=== PATIENT | male | born 1970 | race Hispanic/Latino ===

== ENCOUNTER 2023-04-25 12:48 | Emergency (ER) | payer OTHER ==
[2023-04-25 15:27] VITALS: BP 165/84; PULSE 72; RESP 18; O2SAT 98
== END 2023-04-25 16:27 | disposition home or self-care (01) ==
LOC: EDH 12:48
DX: S09.8XXA Other specified injuries of head, initial encounter (principal); I10 Essential (primary) hypertension; X58.XXXA Exposure to other specified factors, initial encounter; Y93.89 Activity, other specified; Y92.89 Other specified places as the place of occurrence of the external cause; Y99.8 Other external cause status
CPT/HCPCS: 70450

== ENCOUNTER 2024-02-19 16:22 | Emergency (ER) | payer OTHER ==
[~2024-02-19] VITALS: Ht 167.6 cm; Wt 70.3 kg
[2024-02-19] MEDS: KETOROLAC 30MG VIAL (30MG/ML) IM ONE (17:55)
[2024-02-19 18:13] VITALS: BP 145/88; PULSE 80; RESP 16; O2SAT 99
== END 2024-02-19 18:18 | disposition home or self-care (01) ==
LOC: EDH 16:22
DX: S00.93XA Contusion of unspecified part of head, initial encounter (principal); Z79.01 Long term (current) use of anticoagulants; Z95.2 Presence of prosthetic heart valve; X58.XXXA Exposure to other specified factors, initial encounter; Y93.89 Activity, other specified; Y92.89 Other specified places as the place of occurrence of the external cause; Y99.9 Unspecified external cause status
CPT/HCPCS: 99285; 70450; 96372; J1885

== ENCOUNTER 2024-12-28 11:09 | Emergency (ER) | payer OTHER ==
[~2024-12-28] VITALS: Ht 170.2 cm; Wt 76.3 kg
[2024-12-28] MEDS: HYDROcodone/APAP 5/325 1 TAB TABLET PO STA (12:12)
--- NOTE | 2024-12-28 13:30 | HMCIMG ---
US VENOUS DOPPLER UNILATERAL HISTORY: Swelling COMPARISON: None TECHNIQUE: Left lower extremity venous Doppler ultrasound study was performed. Additional images of the left calf were obtained at the region of interest. FINDINGS: The left common femoral, femoral, popliteal, and posterior tibial veins are visualized. Normal flow with augmentation and compressibilities are demonstrated. Left greater saphenous vein is patent. At the region of interest in the left calf area, there is complex fluid collection measuring 6.1 x 1.3 x 3.3 cm may be related to a tear. IMPRESSION: 1. No evidence of deep venous thrombosis is seen. Possible tear in the left calf area with complex fluid collection measuring 6.1 x 1.3 x 3.3 cm.
--- NOTE | 2024-12-28 14:36 | HMCIMG ---
CT LOW EXT W/O CONTRAST REASON: possible left calf tear. COMPARISON: None TECHNIQUE: CT of the left tibia and fibula was obtained. Two-dimensional reconstruction images were obtained. Intravenous contrast was not given. FINDINGS: No acute displaced fracture is seen of the left tibia and fibula. There appears to be intramuscular hematoma near the fascial plane of the gastrocnemius and soleus muscle in the left upper calf region. Adjacent subcutaneous fat stranding is seen. IMPRESSION: Findings as described above.
--- NOTE | 2024-12-28 14:45 | ERN ---
ED Note History of Present Illness Stated Complaint: LEFT LOWER LEG PAIN Chief Complaint: Lower Extremity Pain/Injury Time Seen by MD: 11:17 Time Seen by Midlevel: 11:20 Dictation: 54-year-old male with no past medical history coming in complaining of left calf pain onset eight days ago. Patient states he was coming off a ladder stepped wrong and since then has had calf pain and swelling. Went to the PCP today and was sent here to rule out a DVT. Allergies: Coded Allergies: No Known Drug Allergies (Unverified Allergy, Unknown, 02/19/24) Past Medical History Past Medical History: Heart Disease, Other Surgical History: Other Surgical History Other: HEART VALVE REPLACEMENT Social History: Negative, Lives with family Review of System Dictation Constitutional: Negative for fever,chills, and weight loss Eyes: Negative for injury, pain,redness, and discharge ENT: Negative for injury,pain or swelling Cardiovascular: Negative for chest pain, palpitations, and edema Respiratory: Negative for shortness of breath, cough, and wheezing, Abdomen/GI: Negative for abdominal pain, nausea, vomiting, diarrhea, and constipation Back: Negative for injury and pain : Negative for injury, bleeding and discharge MS/Extremity: Negative for injury and deformity, left calf pain Skin: Negative for rash, and discoloration Neuro: Negative for headache, weakness, numbness, tingling, and seizure Psych: Negative for suicide ideation, homicidal ideation, and hallucinations Review of Systems: was completed Initial Vital Sign VS Vital Signs Date Time Temp Pulse Resp B/P (MAP) Pulse Ox O2 Delivery O2 Flow Rate FiO2 12/28/24 11:29 98.1 85 16 152/96 98 Room Air 0 Physical Exam Dictation General: awake, alert, NAD Head/Face: Normocephalic, atraumatic Eyes: PERRL, EOMI, vision at baseline ENT: oral cavity clear, TMs clear, no signs of infection Neck: Trachea midline, supple, no nuchal rigidity Cardiovascular: RRR, normal S1/S2, No MRGs, no JVD Respiratory: CTAB, no respiratory distress, No rales or wheezes Abdomen: Soft, non-tender, non-distended, normal bowel sounds, no guarding or rebound. Skin: Warm, dry, normal turgor, no rash MS/Extremity: Pulses equal, no cyanosis, neurovascular intact, FROM, left calf swelling and tenderness on palpation, distal pulses intact, Neuro: COAx4, GCS 15, strength 5/5, CN 2-12 intact, normal cerebellar exam, normal gait, Psych: Normal behavior, mood, and affect normal Results (Laboratory/Radiology) Ultrasound Comment: [facility] [address] [place] [address] [id number] IMAGING REPORT Signed PATIENT: ADAMS VÁZQUEZ MR#: [id number] : 05/1970 SEX: M AGE: 54 LOCATION: [facility] ORDER [id number] STATUS: REG ER REPORT#: [id number] SERVICE 1136 REASON: left calf pain, swelling ORDERING PHYSICIAN: RANDAL CHANDRA NP PROCEDURE: VENOUS UNI - US VENOUS DOPPLER UNILATERAL US VENOUS DOPPLER UNILATERAL HISTORY: Swelling COMPARISON: None TECHNIQUE: Left lower extremity venous Doppler ultrasound study was performed. Additional images of the left calf were obtained at the region of interest. FINDINGS: The left common femoral, femoral, popliteal, and posterior tibial veins are visualized. Normal flow with augmentation and compressibilities are demonstrated. Left greater saphenous vein is patent. At the region of interest in the left calf area, there is complex fluid collection measuring 6.1 x 1.3 x 3.3 cm may be related to a tear. IMPRESSION: 1. No evidence of deep venous thrombosis is seen. Possible tear in the left calf area with complex fluid collection measuring 6.1 x 1.3 x 3.3 cm. DICTATED BY: CELESTE MCKINNON MD DATE: 12/28/24 1325 ELECTRONICALLY SIGNED BY: CELESTE MCKINNON MD DATE: 12/28/[address] Scan Comment: [facility] [address] [place] [id number] IMAGING REPORT Signed PATIENT: ADAMS VÁZQUEZ MR#: [id number] : 1970 SEX: M AGE: 54 LOCATION: [facility] ORDER [id number] STATUS: REG ER REPORT#: [id number] SERVICE [id number] REASON: possible left calf tear ORDERING PHYSICIAN: RANDAL CHANDRA NP PROCEDURE: LOW EXT WO - CT LOW EXT W/O CONTRAST CT LOW EXT W/O CONTRAST REASON: possible left calf tear. COMPARISON: None TECHNIQUE: CT of the left tibia and fibula was obtained. Two-dimensional reconstruction images were obtained. Intravenous contrast was not given. FINDINGS: No acute displaced fracture is seen of the left tibia and fibula. There appears to be intramuscular hematoma near the fascial plane of the gastrocnemius and soleus muscle in the left upper calf region. Adjacent subcutaneous fat stranding is seen. IMPRESSION: Findings as described above. DICTATED BY: CELESTE MCKINNON MD DATE: 12/28/241430 ELECTRONICALLY SIGNED BY: CELESTE MCKINNON MD DATE: 12/28/24 143 ED Course ED Course Orders Procedure Category Date Status Time Hydrocodone/Apap PHA 12/28/24 Complete 5/325 ([place] 5/325mg) 11:35 Us Venous Doppler US 12/28/24 Resulted Unilateral 11:35 Ct Low Ext W/O CT 12/28/24 Resulted Contrast 13:40 *Nursing CPOE 12/28/24 Transmitted Communication: 13:43 Current Medications Medications (Trade) Dose Ordered Sig/Karine Route PRN Reason Start Time Stop Time Status Last Admin Dose Admin Acetaminophen/ Hydrocodone Bitart ([place] 5/325MG) 1 tab ONCE STAT PO 12/28/24 11:35 12/28/24 11:38 DC 12/28/24 12:12 Vital Signs Date Time Temp Pulse Resp B/P (MAP) Pulse Ox O2 Delivery O2 Flow Rate FiO2 12/28/24 11:29 98.1 85 16 152/96 98 Room Air 0 Medical Decision Making MDM MDM: 54-year-old male with no past medical history coming in complaining of left calf pain onset eight days ago. Patient states he was coming off a ladder stepped wrong and since then has had calf pain and swelling. Went to the PCP today and was sent here to rule out a DVT. Ultrasound shows possible tear in the left calf area with complex fluid collection. Consult with Dr. Houston, orthopedic on-call, recommended patient to get a CT scan without, apply an orthopedic boot with crutches and have patient follow up in his office during the week. Discussed this with the patient. Agrees to follow up outpatient with the internet security specialist. Educated patient on signs and did not return back to the ER. Patient verbalized understanding, answered all questions. Differential diagnosis: DVT, hematoma, Rationale: Tests considered and ordered secondary to shared decision making include: Previous outside records reviewed: Old ER visits. Risk of complication and/or morbidity or mortality of patient management: None Medications-Per medication reconciliation Need for hospitalization: Patient does not meet criteria for hospitalization. Need for emergency major/minor surgery: No There are no social concerns with this patient. Prescription drug management Prescriptions will include symptomatic care Patient's prior external medical records from other ER visits were reviewed by me as indicated. Prior testing and results from previous visits were reviewed. Prior tests were taken into account with medical decision making and resource utilization, independent historian/historians were used to obtain complete medical history. I independently interpreted the test that were performed, results were reviewed by me and considered findings on radiology if ordered. Medical management and examination interpretation discussions were had by me with other qualified healthcare professionals as indicated for the patient's care. DX & DISP Disposition: Discharge Departure Impression: Primary Impression: Calf pain Additional Impressions: Calf swelling, Calf tenderness Condition: Stable Additional Instructions: Keep orthopedic boot and use crutches until cleared by the internet security specialist. Follow up with in the week in his office. Referrals: SELF,REFERRAL (PCP) COLLINS KAPLAN MD Time of Disposition: 14:44 I have reviewed the case, and I agree with, Diagnosis and Plan RANDAL CHANDRA NP Dec 28, 2024 14:45
[2024-12-28 15:20] VITALS: BP 130/87; PULSE 79; RESP 20; TEMP 98.2; O2SAT 97
--- NOTE | 2024-12-28 15:20 | NUR ---
MED WALKING BOOT PLACED ON LT FOOT, PT TOLERATED WELL. CRUTCHES WITH CRUTCH WALK INSTRUCTIONS GIVEN, PT VERBALIZED UNDERSTANDING.
== END 2024-12-28 15:26 | disposition home or self-care (01) ==
LOC: EDH 11:09
DX: M79.662 Pain in left lower leg (principal); M79.89 Other specified soft tissue disorders; Z95.2 Presence of prosthetic heart valve
CPT/HCPCS: 73700; 93971; 99284